=== PATIENT | female | born 1950 | race Two or more races ===

== ENCOUNTER 2017-02-16 01:32 | Emergency (ER) | payer BC ==
[~2017-02-16] VITALS: Ht 162.6 cm; Wt 72.6 kg
[2017-02-16 01:40] VITALS: BP 118/68
== END 2017-02-16 07:48 | disposition left against medical advice (07) ==
LOC: ER 01:32 → EDBD 01:32 → ER 07:48
DX: M54.9 Dorsalgia, unspecified (principal); Z53.21 Procedure and treatment not carried out due to patient leaving prior to being seen by health care provider